=== PATIENT | male | born 1980 | race Caucasian/White ===

== ENCOUNTER 2018-08-06 05:39 | Emergency (ER) | payer MEDICAID, OTHER | END 2018-08-06 06:30 | disposition home or self-care (01) | LOC: E/R 05:39 | DX: H60.502 Unspecified acute noninfective otitis externa, left ear (principal); R40.2142 Coma scale, eyes open, spontaneous, at arrival to emergency department; R40.2362 Coma scale, best motor response, obeys commands, at arrival to emergency department; R40.2252 Coma scale, best verbal response, oriented, at arrival to emergency department; F17.210 Nicotine dependence, cigarettes, uncomplicated | CPT/HCPCS: 99283; Z7502 ==